=== PATIENT | female | born 1985 | race Caucasian/White ===

== ENCOUNTER 2017-07-15 10:58 | Emergency (ER) | payer SELFPAY ==
--- NOTE | ~2017-07-15 | ER ---
PATIENT'S NAME: TAY LEHMAN [facility] AGE: 31 Y [address] ROOM: [place] [id number] LOCATION: [facility] ADMIT DATE: 07/15/2017 ER/Outpatient Report DISCHARGE DATE: 07/15/2017 FAMILY PHYSICIAN: PHYSICIAN, NO ATTENDING PHYSICIAN: Kristian Pressley TIME OF ARRIVAL: 1058. TIME OF EVALUATION: 1120. CHIEF COMPLAINT: Headache. HISTORY OF PRESENT ILLNESS: The patient is a 31-year-old female who presents to emergency department today with a chief complaint of headache. Reports that it has been getting worse over the past six months. The patient does have a history of headaches in the past. She is just getting them more frequently about 2 to 3 times per week. She wakes up with these headaches. Denies any fevers or chills. Does have some nausea. No vomiting. No diarrhea or constipation. She reports she is unable to go to work today and needs a work note. It is on the top of her head. It is currently 4/10 in severity. She is having some photophobia. PAST MEDICAL HISTORY: Migraines. PAST SURGICAL HISTORY: Left leg, right arm. SOCIAL HISTORY: The patient smokes half pack per day. Denies any alcohol or illicit drug use. ALLERGIES: TO BACTROBAN. MEDICATIONS: None. PRIMARY CARE DOCTOR: Dr. Crowe. REVIEW OF SYSTEMS: All systems are reviewed by myself and are negative with the exception of PATIENT'S NAME: TAY LEHMAN [facility] AGE: 31 Y [address] ROOM: [place] [id number] LOCATION: [facility] ADMIT DATE: 07/15/2017 ER/Outpatient Report DISCHARGE DATE: 07/15/2017 FAMILY PHYSICIAN: PHYSICIAN, NO ATTENDING PHYSICIAN: Kristian Pressley those discussed in HPI and past medical history. PHYSICAL EXAMINATION: VITAL SIGNS: Weight 66.0 kg, blood pressure 131/76, pulse 93, respiratory rate 18, temperature 97.9, oxygen saturation 98% on room air. GENERAL: The patient is a 31-year-old female, who appears stated age in no acute distress at this time. HEENT: Head: Normocephalic, atraumatic. Pupils are equal, round, and reactive to light and accommodation. Extraocular movements are intact. Nares are patent bilaterally. TMs are clear. Oropharynx is clear. NECK: Supple. There is no nuchal rigidity. CARDIOVASCULAR: Regular rate and rhythm. No murmurs, rubs, or gallops. LUNGS: Clear to auscultation bilaterally. No wheezes, rales, or rhonchi. ABDOMEN: Soft, nontender, and nondistended. No rebound, rigidity, or guarding. MUSCULOSKELETAL: The patient moves all 4 extremities, 5/5 muscle strength. NEUROLOGIC: GCS 15. Alert and oriented x4. Cranial nerves 2 through 12 are intact. Normal [id number]. Normal rapid hand movement. Equal piecer up strength bilaterally. Downward going toes. No clonus. SKIN: Warm and dry. No rashes or lesions noted. LABORATORY DATA AND X-RAYS: CT scan of the brain is obtained. I have discussed the results with the radiologist, shows no acute process. IMPRESSION: 1. Acute cephalgia, suspect migraine type. 2. Initial visit. EMERGENCY DEPARTMENT COURSE: The patient is brought back to the examination room. Seen and evaluated by myself. The patient is given 10 mg of Compazine IM as well as 50 mg of Benadryl IM. I have discussed the results with the patient. She does report she feels much improved at this time. I have discussed return to care instructions including worsening symptoms or other concerns to return to the emergency department as soon as possible. I have asked she follows up with the primary care doctor in 2 to 3 days for re-evaluation. I have also discussed with her that with severity of her headaches, she likely needs to see a neurologist and consideration for MR. She has a normal neuro exam at this time and I feel like she is safe for outpatient evaluation as well as having a normal CT scan. DISPOSITION: The patient is discharged home in good condition. PATIENT'S NAME: TAY LEHMAN [facility] AGE: 31 Y [address] ROOM: [place] [id number] LOCATION: [facility] ADMIT DATE: 07/15/2017 ER/Outpatient Report DISCHARGE DATE: 07/15/2017 FAMILY PHYSICIAN: PHYSICIAN, NO ATTENDING PHYSICIAN: Kristian Pressley DO ALINA TELLEZ/modl /[id number] d: 07/15/17 1853 t: 07/21/17 0700, OUTPATIENT REPORT
== END 2017-07-15 12:35 | disposition disaster alternative care site (69) ==
LOC: GMED 10:58
DX: R51 Headache (principal); F17.210 Nicotine dependence, cigarettes, uncomplicated; Z88.1 Allergy status to other antibiotic agents; Z79.1 Long term (current) use of non-steroidal anti-inflammatories (NSAID)
CPT/HCPCS: J0780; J1200